=== PATIENT | female | born 1985 | race Caucasian/White ===

== ENCOUNTER 2016-10-12 09:21 | Day surgery (SDC) | payer BC ==
[~2016-10-12] VITALS: Ht 172.7 cm; Wt 123.2 kg
[2016-10-12] VITALS (12 sets, daily range): BP systolic 110–140; BP diastolic 53–88; PULSE 75–94; RESP 16–22; Ht 172.7 cm; Wt 123.2 kg
[~2016-10-12 09:21] MED LIST: ACETAMINOPHEN 1000 MG/100 ML IVPB ONE
[2016-10-12] MEDS ORDERED: ROCURONIUM 50 MG INJ ONE ×4 (11:10→14:46)
[2016-10-12] MEDS ORDERED: PROPOFOL 20 ML ONE ×2 (11:10→13:25)
[2016-10-12] MEDS ORDERED: MIDAZOLAM 1 MG/ML 2 ML INJ ONE ×2 (11:10)
[2016-10-12] MEDS ORDERED: CEFAZOLIN 1 GM INJ ONE ×2 (11:10→13:25)
[2016-10-12] MEDS ORDERED: FENTAnyl 50 MCG/ML VIAL ONE ×2 (11:10→16:08)
[2016-10-12] MEDS ORDERED: ROPIVACAINE 0.5 % 30 ML VIAL ONE ×2 (11:11→15:36)
--- NOTE | 2016-10-12 11:51 | HPN ---
Date/Time of Note Date/Time of Note DATE: 10/12/16 TIME: 11:51 Interval H&P Admission Note Pt. seen H&P reviewed: No system changes FATUMA SANTIAGO MD Oct 12, 2016 11:51
[2016-10-12] MEDS ORDERED: POLYMYXIN/BACITRACIN 1L IRRIG ONE (12:38)
[2016-10-12] MEDS ORDERED: LABETALOL HCL 20MG INJ ONE ×3 (12:47→14:57)
[2016-10-12] MEDS ORDERED: hydrALAzine 20 MG INJ ONE ×2 (12:48→14:56)
[2016-10-12] MEDS ORDERED: PROPOFOL 200 ML ONE (13:25)
[2016-10-12] MEDS ORDERED: MEPERIDINE 25 MG INJ IV PRN (13:30)
[2016-10-12] MEDS ORDERED: LABETALOL HCL 20MG INJ IV PRN (13:30)
[2016-10-12] MEDS ORDERED: EPHEDrine SULFATE 50 MG/5 ML SYG IV PRN (13:30)
[2016-10-12] MEDS ORDERED: OXYCODONE/ACETAMINOPHEN (5/325) TAB PO PRN ×3 (13:30→17:00)
[2016-10-12] MEDS ORDERED: DIPHENHYDRAMINE 50 MG INJ IV PRN (13:30)
[2016-10-12] MEDS ORDERED: ONDANSETRON 4 MG INJ IV PRN (13:30)
[2016-10-12] MEDS ORDERED: morphine (1 MG/ML) 10ML SYRINGE IV PRN ×3 (13:30)
[2016-10-12] MEDS ORDERED: METOCLOPRAMIDE 10 MG INJ IV PRN (13:30)
[2016-10-12] MEDS ORDERED: HYDROmorphONE (0.2 MG/ML) 10ML SYG IV PRN ×2 (13:30)
[2016-10-12] MEDS ORDERED: DEXAMETHASONE 4 MG/ML 1 ML INJ ONE (13:42)
[2016-10-12] MEDS ORDERED: ONDANSETRON 4 MG INJ ONE (13:42)
[2016-10-12] MEDS ORDERED: METOCLOPRAMIDE 10 MG INJ ONE (13:42)
[2016-10-12] MEDS ORDERED: KETOROLAC 30 MG INJ ONE (13:42)
[2016-10-12] MEDS ORDERED: NEOSTIGMINE 3 MG/3 ML SYRINGE ONE (15:46)
[2016-10-12] MEDS ORDERED: GLYCOPYRROLATE 0.4 MG INJ ONE (15:46)
[2016-10-12] MEDS ORDERED: BACITRACIN/POLYMYXIN 28.35 GM OINT TOP ONE (15:55)
[2016-10-12] MEDS ORDERED: BACITRACIN/POLYMYXIN 0.9 GM OINT TOP ONE (16:12)
[2016-10-12] MEDS: HYDROmorphONE (0.2 MG/ML) 10ML SYG IV PRN ×3 (16:31→16:47)
[2016-10-12] MEDS ORDERED: morphine 10 MG INJ IV PRN (17:00)
[2016-10-12] MEDS ORDERED: morphine 2 MG INJ IV PRN (17:00)
--- NOTE | 2016-10-12 17:13 | OPR ---
Date/Time of Note Date/Time of Note DATE: 10/12/16 TIME: 16:51 Operative Report Preoperative Diagnosis Right knee acl tear Right knee medial meniscus tear Postoperative Diagnosis Right knee acl tear Right knee medial meniscus tear Operation/Procedure Performed Right knee arthroscopy with ACL reconstruction with Achilles Allograft Right knee arthroscopy with partial medial menisectomy Right knee arthroscopy with chondroplasty Surgeon: FATUMA SANTIAGO MD assistant chief engineer: QUENTIN SANTIAGO MD Anesthesia: general, other Estimated Blood Loss: 0 - 10 ml's Grafts/Implants achilles tendon allograft with [employer] Extendo-Button EndoButton [employer] Biosure screw 9 x 20mm Fast-Lock Staple Complications: None FATUMA SANTIAGO MD Oct 12, 2016 17:01
--- NOTE | 2016-10-12 17:18 | OPR ---
Date/Time of Note Date/Time of Note DATE: 10/12/16 TIME: 17:14 Operative Report Preoperative Diagnosis Right knee acl tear Right knee medial meniscus tear Postoperative Diagnosis Right knee acl tear Right knee medial meniscus tear Operation Performed Right knee arthroscopy with ACL reconstruction with Achilles Allograft Right knee arthroscopy with partial medial menisectomy Right knee arthroscopy with chondroplasty Surgeon: FATUMA OREILLY MD assistant: QUENTIN OREILLY MD Anesthesia: general, other Estimated Blood Loss: 0 - 10 ml's Grafts/Implants achilles tendon allograft with [employer] Extendo-Button EndoButton [employer] Biosure screw 9 x 20mm Fast-Lock Staple Complications: None Procedure Description DATE OF OPERATION: 10/12/2016 PREOPERATIVE DIAGNOSE: 1. right knee posterior horn medial meniscus tear 2. right knee anterior cruciate ligament tear. POSTOPERATIVE DIAGNOSES: 1. right knee posterior horn medial meniscus tear 2. right knee anterior cruciate ligament tear. OPERATION PERFORMED: 1. right knee arthroscopy with partial medial meniscectomy. 2 right knee arthroscopy Chondroplasty. 3. right knee arthroscopic ACL reconstruction with Achilles allograft. SURGEON: Fatuma Oreilly MD FINANCIAL SERVICES REPRESENTATIVE: Quentin Oreilly MD ANESTHESIA: Regional block with a fascial iliacus block. ANESTHESIOLOGIST: Dr. Miranda TOURNIQUET TIME: 120 minutes at 250 mmHg ESTIMATED BLOOD LOSS: Minimal. IMPLANTS: 1. One [employer] ExtendoButton EndoButton 2. One [employer] BioSure 9 x 20 mm screw 3. One Fast Lock staple INDICATIONS: The patient is 30-year-old female who sustained a right knee ACL tear and medial meniscal tear while skiing several weeks ago. After this injury and going a full pre-rehabilitation and she has obtained strength and full range of motion and is now indicated for surgery, given her MRI findings and chronic instability with a strong desire to return to to full level of athletics. RISK NOTE: The patient has restored their range of motion and is now brought to the operating room for ACL reconstruction, possible partial medial and lateral meniscectomy versus medial and lateral meniscal repair, chondroplasty and debridement. The risks, benefits, and alternatives of surgery were discussed with the patient. The risks included but were not limited to infection, bleeding, damage to vessels and nerves, loss of motion, continued pain, re-tear of the meniscus, deep venous thrombosis, and complications due to anesthesia including nerve injury, myocardial infarction, stroke, , etc. The patient stated understanding of the nature of the surgical procedure and gave written and verbal consent to proceed. Graft options were discussed at length and they elected to proceed with allograft reconstruction understanding the potential higher rerupture rate is compared autograft tissue. OPERATIVE NOTE: The right lower extremity was examined under anesthesia. Range of motion was 0 degrees of extension to 135 degrees of flexion. There was no varus or valgus or posterolateral instability. She had no instability to varus or valgus stress at 0 or 30 degrees. She had a 2+ Adebayo and drawer with a positive pivot shift. The right lower extremity was then prepped and draped in the usual fashion. Tourniquet placed on the operative extremity thigh sterilely. The right iliac crest was then prepped and draped in normal sterile fashion. A timeout was taken and all parties in the room agreed it was the correct patient , extremity and correct procedure. Small 1 cm incision was made over the right iliac crest with care to avoid any injury to any surrounding neurovascular structures. A marley and spread technique was then used to get down to the iliac crest bone. Using a Jamshidi needle, approximately 60 cc of bone marrow aspirate was then withdrawn from her iliac crest. And then using a sterile fashion and handed off for centrifugation to create a concentrate. The wound was irrigated and closed with 5-0 Monocryl followed by Steri-Strips and covered with 4 x 4s and Tegaderm. A standard anterolateral parapatellar stab wound was created. The knee joint was entered with a blunt-tipped obturator, followed by the 30-degree video arthroscope. An anteromedial portal was established under arthroscopic control. A routine arthroscopic survey was performed. The suprapatellar pouch was unremarkable. The undersurface of the patella was well-preserved. The patella appeared to track centrally within the trochlear groove. The medial and lateral gutters were inspected and there was no loose body seen. There was no hypertrophied plica. The popliteal hiatus was entered and was unremarkable. The lateral compartment was entered. The articular surfaces of the lateral femoral condyle showed a 2x3 partial thickness chondral defect. There was minimal chondromalacia adjacent to the notch. There was chondromalacia along the central aspect of the weight bearing lateral tibial plateau. There was a small radial tear of the midbody of the later meniscus tear that was debrided gently with a motorized shaver and basket forceps. The motorized shaver and basket biters were used to smooth the remaining meniscal rim, with care to maintain the peripheral meniscal rim. A probe was introduced and this was carefully probed and was found to be stable. Chondroplasty was then carried out along the weightbearing aspect of the lateral femoral condyle, medial tibial plateau, taking care to remove only loose articular cartilage debris and preserve functional articular cartilage. The intercondylar notch was visualized. The anterior cruciate ligament was torn from it's femoral origin. There was an empty lateral wall. Posteromedially there was no loose body seen. The posterior cruciate ligament was visualized and appeared intact. The medial compartment was entered. The articular surfaces of the medial femoral condyle and medial tibial plateau were visualized. There was chondromalacia noted on the medial femoral condyle, and chondromalacia noted on the medial tibial plateau. The medial meniscus was visualized and found to be torn at the white-white and small area at the white-red zone from the mid body to the posterior horn. It was probed extensively and felt to be of poor quality tissue with very poor likelihood of healing potential. The tear that was visualized was debrided gently with a motorized shaver and basket forceps. The motorized shaver and basket biters were used to smooth the remaining meniscal rim, with care to maintain the peripheral meniscal rim. A probe was introduced and this was carefully probed and was found to be stable. Chondroplasty was then carried out along the weightbearing aspect of the medial femoral condyle, medial tibial plateau, taking care to remove only loose articular cartilage debris and preserve functional articular cartilage. The lateral compartment was reentered and the loose chondral debris was debrided with motorized shaver. Attention was then directed back to the patella femoral joint and a chondroplasty was carried out along the weightbearing aspect of the trochlea and undersurface of the patella to again remove loose debris and maintain functional active articular cartilage. Attention was turned to reconstruction of the anterior cruciate ligament. Following exsanguination with an Esmarch bandage the tourniquet was inflated to 250 mm of mercury. Using a motorized shaver a notchplasty was performed, exposing the lateral wall and roof of the notch, identifying the uopp-phi-may position. The stump of the anterior cruciate ligament was debrided. A Vector guide was placed intra- articularly between the tibial spines in line with the anterior horn of the lateral meniscus. A Kalie wire was then inserted into the knee through a 2 cm incision made over the proximal medial tibia. The incision was deepened through the subcutaneous tissue with subperiosteal dissection achieved. Bleeding points were coagulated with the Bovie electrocautery. A fresh frozen tibialis allograft was opened and prepared at the back table, accommodating a 9.5 mm graft on the femoral side and 9.5 mm graft on the tibial side. Tibial drilling was then carried out first with a 6.5 mm followed by a 9.5 mm cylindrical reamer with the guide set at 55 degrees. The Beath pin was drilled out the femoral cortex and skin. The femoral tunnel was then created, through an accessory anteromedial portal, first with a ACL pinpoint guide to find the anatomic footprint in the knee in 90 degrees then with the knee in hyperflexion with the cortex was penetrated at 30 mm with a 4.5 mm EndoReamer. Depth-gauging confirmed a tunnel length of 30 mm. The tunnel was then drilled with the knee in hyperflexion to a tunnel of 9.5 with a depth of 25 mm. A Mitek adjustable rigid loop was selected. The graft was inserted intra- articularly and the Button was deployed. The graft was cycled for 20 cycles with 25 pounds of force to pre-load the graft. Tibial fixation was carried out using a 8-10 bioabsorbable Intra-Fix in 10 degrees of flexion with a posterior drawer. The patients bone quality was felt to be poor so we attempted to back up the tibial fixation with staple however the staple was not held well in place due to the poor bone quality of the patient. At the completion of surgery the patient had a firm stable Adebayo. There was a negative pivot shift. She had a 0 firm Adebayo and a negative pivot shift. There was no evidence for any roof or lateral wall impingement. The tourniquet was deflated at 85 minutes. The knee was irrigated with two liters of lactated Ringer's solution. Excess fluid was drained. The tibial wounds were then copiously irrigated with bacitracin solution and closed in layers with #0, #2-0 and #3-0 Vicryl. The skin was reapproximated with #4-0 Monocryl. The knee was injected with 20 cc of 0.5% plain ropivacaine and 4 mg of Duramorph. The knee was then injected with 4 cc of Bone Marrow Aspirate Concentrate. A dry sterile dressing was then applied followed then soaked in platelet poor plasma, followed by a bulky soft bandage in a thigh-high Isidro stocking. A postoperative TROM brace was applied locked in full extension. She will plan to be non weight bearing for the first week then toe touch weight bearing for the 2nd and 3rd week due to the poor bone quality. The patient was awakened in the Operating Room and transported to the Recovery Room in satisfactory condition. She appeared to tolerate the procedure well. At the completion of surgery the patient had soft compartments, palpable pulses , and brisk capillary refill. There were no complications noted. FINANCIAL SERVICES REPRESENTATIVE SURGEON: During the operation, the services of a orthopedic surgeon benefits assistant were medically indicated and necessary to provide exposure of the operative site for the surgical procedure and to maintain the limb in a proper position to carry out the operation safely and efficiently. Without the qualified benefits assistant being present, it would have extended the operative procedure and made the procedure technically more difficult to perform. Modifier 22 - Given the patient's BMI of 41, this made the case longer, substantially more difficult and technically challenging to perform, FATUMA OREILLY MD Oct 12, 2016 17:18
== END 2016-10-12 18:05 | disposition home or self-care (01) ==
LOC: SDS 09:21
PROVIDERS: ATTEND Orthopaedic Surgery
DX: S83.511A Sprain of anterior cruciate ligament of right knee, initial encounter (principal); S83.241A Other tear of medial meniscus, current injury, right knee, initial encounter; E66.01 Morbid (severe) obesity due to excess calories; Z68.41 Body mass index [BMI] 40.0-44.9, adult; X58.XXXA Exposure to other specified factors, initial encounter; Y93.23 Activity, snow (alpine) (downhill) skiing, snowboarding, sledding, tobogganing and snow tubing; Y99.9 Unspecified external cause status; Y92.9 Unspecified place or not applicable
CPT/HCPCS: 29881; 29888; C1713; C1762; J0131; J0360; J0690; J1100; J1170; J1885; J2250; J2405; J2710; J2765; J2795; J3010; Z7512; Z7610